=== PATIENT | female | born 1985 | race Caucasian/White ===

== ENCOUNTER 2022-01-10 12:27 | Outpatient (CLI) | payer BC, SELFPAY ==
[2022-01-10 14:13] LABS: Basophils Absolute Auto 0.03 K/uL (0.00-0.30); Basophils Percent Auto 0.4 % (0.0-3.0); Eosinophils Absolute Auto 0.07 K/uL (0.00-0.50); Hematocrit 44.3 % (33.0-51.0); Hemoglobin* 14.9 gm/dL (12.0-16.0); Immature Granulocytes Abs Auto 0.01 K/uL (0.00-0.30); Lymphocytes Absolute Auto 2.96 K/uL (0.90-2.90); Lymphocytes Percent Auto 40.9 % (20-44); Mean Corpuscular HGB Conc 34 gm/dL (32-36); Mean Corpuscular Hemoglobin 30 pg (26-34); Mean Corpuscular Volume 90 fL (80-100); Monocytes Percent Auto 9.1 % (0.0-11.0); Neutrophils Percent Auto 48.5 % (42.0-72.0); Platelet Count* 304 K/uL (140-440); RDW Coefficient of Variation % 12.2 % (11.5-15.5); White Blood Count* 7.23 K/uL (4.50-11.00)
[2022-01-10 14:25] LABS: Slide Review Reflex No
[2022-01-10 16:13] LABS: Chloride* 106 mmol/L (96-114); Potassium* 4.4 mmol/L (3.6-5.1); Sodium* 140 mmol/L (135-149)
[2022-01-10 16:16] LABS: Creatinine* 0.6 mg/dL (0.5-1.5); Estimated Glomerular Filt Rate 120 ml/min
[2022-01-10 16:17] LABS: Blood Urea Nitrogen* 8 mg/dL (5-24); Calcium* 9.5 mg/dL (8.4-10.6); Carbon Dioxide* 24 mmol/L (20-32); Glucose* 86 mg/dL (60-115)
[2022-01-10 16:27] LABS: C Reactive Protein* < 0.5 mg/dL (0.5-1.0)
[2022-01-11 12:51] LABS: Rheumatoid Factor <10 IU/mL (0-14)
[2022-01-12 00:32] LABS: Anti-Nuclear Ab(ANA)IgG ELISA None Detected (None Detected)
== END 2022-01-10 12:28 | disposition home or self-care (01) ==
PROVIDERS: PCP Family Medicine; Visit Provider Family Medicine
DX: M25.50 Pain in unspecified joint (principal)
CPT/HCPCS: 80048; 84443; 85025; 86039; 86140; 86431

== ENCOUNTER 2022-02-26 09:14 | Outpatient (CLI) | payer BC, SELFPAY ==
[2022-03-01 16:53] LABS: HLA-B27 Negative (Negative)
== END 2022-02-26 09:15 | disposition home or self-care (01) ==
LOC: FBOREF 09:15
PROVIDERS: PCP Family Medicine; Visit Provider Family Medicine
DX: G89.29 Other chronic pain (principal); M54.50 Low back pain, unspecified
CPT/HCPCS: 86812

== ENCOUNTER 2023-10-24 10:53 | Outpatient (CLI) | payer BC, SELFPAY ==
[2023-10-24 13:52] LABS: Yeast No Yeast Seen (None Seen)
[2023-10-24 13:53] LABS: Clue Cells No Clue Cells Seen (None Seen); Trichomonas No Trichomonas Seen (None Seen)
== END 2023-10-24 10:54 | disposition home or self-care (01) ==
LOC: FBOREF 10:55
PROVIDERS: PCP Family Medicine; Visit Provider Family Medicine
DX: N89.8 Other specified noninflammatory disorders of vagina (principal)
CPT/HCPCS: 87210

== ENCOUNTER 2024-02-17 10:49 | Outpatient (CLI) | payer BC, SELFPAY | END 2024-02-17 10:50 | disposition home or self-care (01) | LOC: FBOREF 10:50 | PROVIDERS: PCP Family Medicine; Visit Provider Family Medicine | DX: E55.9 Vitamin D deficiency, unspecified (principal); R53.83 Other fatigue; R10.9 Unspecified abdominal pain; L65.9 Nonscarring hair loss, unspecified; F41.1 Generalized anxiety disorder | CPT/HCPCS: 80048; 80076; 82306; 82533; 84443; 85025 ==

== ENCOUNTER 2024-12-31 08:42 | Outpatient (CLI) | payer BC, SELFPAY | END 2024-12-31 08:43 | disposition home or self-care (01) | LOC: FBOREF 08:43 | PROVIDERS: PCP Family Medicine; Visit Provider Family Medicine | DX: E55.9 Vitamin D deficiency, unspecified (principal); E03.9 Hypothyroidism, unspecified; R63.5 Abnormal weight gain | CPT/HCPCS: 80048; 82306; 84443 ==